=== PATIENT | male | born 1995 | race Caucasian/White ===

== ENCOUNTER → 2016-05-20 | Outpatient (CLI) | payer OTHER ==
--- OUTSIDE RECORDS SUMMARY | 2016-05-17 16:37 | XMS REPORT | Continuity of Care Document ---
Author Author Interface Organization Interface Address Unknown Phone Unavailable Problems Problem Status Onset Date Classification Date Reported Comments Source Other and unspecified nonspecific immunological findings Active Problem 04/04/2014 [facility] Low back pain (disorder) Active Problem 04/04/2014 [facility] Diabetes mellitus type 1 (disorder) Active 05/16/2009 Problem 04/04/2014 [facility] Medications Medication Details Route Status Patient Instructions Ordering Provider Order Date Source influenza virus vaccine, inactivated 04/22/11 11:00: 00 [facility], [facility], Routine, 0.5 mL, IM, Injection, UnscheduledRefrigerate. For IM administration only. Influenza Virus Vaccine, inactivated. Patient Charge. Manufacturer MED ID: [id number] Inactive [facility] Ketostix Test Strips 50 ct Bottle 1 stick, Urine, per protocol, Used to test urine ketones when blood glucose is greater than 250, # 1 box, Refill(s) 1, Pharmacy: [facility] # [id number] </br>Used to test urine ketones when blood glucose is greater than 250 Active [facility] One Touch Ultra Test [id number] ct Box See Instructions , 1 strip Finger Tip Other-see comments 90 day(s), # 300 EA, Refill(s) 5, Pharmacy: [id number] </br>1 strip Finger Tip Other-see comments 90 day(s) Active [facility] Pump Supplies =1 device, Other-(see comments), Other- see comments, Diabetic Supplies, Infusion sets, pump resevoir syringes/ cartridges and related diabetes supplies. Change infusion set and resevoir every 2 days as directed, Refill(s) 3, called to pharmacy (Rx) </br>Diabetic Supplies, Infusion sets, pump resevoir syringes/cartridges and related diabetes supplies. Change infusion set and resevoir every 2 days as directed Active [facility] Contour Next Test Strips 50 ct Box 1 strip, Finger Tip , Other-see comments, 6 times a day, # 4 box, Refill(s) 5, called to pharmacy ( Rx) </br>6 times a day Active [facility] BD Ultrafine Pen [place] 12.7mm needle length 100 ct box 1 syringe, Subcutaneous, Other-see comments, 6 times per day. Use a new needle with each injection., # 2 box, Refill(s) 5, Pharmacy: [facility]acy #[id number] </br>6 times per day. Use a new needle with each injection. Active [facility] Alcohol Swabs 1 EA, Topical, per protocol, 1 box of 300, # 1 box, Refill(s) 5, other reason (Rx) </br>1 box of 300 Active [facility] Fluzone 04/24/12 9:23:00 [employer], [facility], Routine , 0.5 mL, IM, Injection, 1 time only, Stop date 04/24/12 9:23:00 CSTRefrigerate. For IM administration only. Influenza Virus Vaccine, inactivated. Patient Charge. Manufacturer MED ID: [id number] Inactive [facility] Influenza Virus (Fluarix Quadrivalent) Inactivated 10:09:00 CDT, [facility], Routine, 0.5 mL, IM, Injection, 1 time only , Stop date 02/15/13 10:09:00 CDT Inactive [facility] Apidra 100 units/mL subcutaneous solution use up to 90 units daily, Subcutaneous, qDay, # 3 vial, Refill(s) 5, Pharmacy: [id number] Active [facility] Glucagon Emergency Kit 1 kit, IM, 1 time only, Dispense=1 kit, Use for severe low blood glucose </br>Use for severe low blood glucose Active [facility] Blood Sugar Meter 1 device, Other-(see comments), Other-see comments, # 1 EA, Refill(s) 0, other reason (Rx) Active [facility] Allergies, Adverse Reactions, Alerts Substance Category Reaction Severity Reaction type Status Date Reported Comments Source Immunizations Immunization Date Given Site Status Last Updated Comments Source hepatitis B vaccine (Hep B) 1995 completed [facility] hepatitis B vaccine (Hep B) 1995 completed [facility] dipht/tetanus/pertuss(a) (DTap) 1995 completed [facility] haemophilus flu b (Hib) 1995 completed [facility] inactivated poliovirus (IPV) 1995 [facility] dipht/tetanus/pertuss(a) (DTap) 1995 [facility] inactivated poliovirus (IPV) 1995 completed [facility] haemophilus flu b (Hib) 1995 completed [facility] dipht/tetanus/pertuss(a) (DTap) 01/04/1996 [facility] hepatitis B vaccine (Hep B) 01/04/1996 completed [facility] inactivated poliovirus (IPV) 01/04/1996 [facility] haemophilus flu b (Hib) 01/04/1996 [facility] Measles, Mumps, Rubella, Varicella(MMRV) 06/13/1996 completed [facility] dipht/tetanus/pertuss(a) (DTap) 11/12/1996 completed [facility] haemophilus flu b (Hib) 11/12/1996 completed [facility] dipht/tetanus/pertuss(a) (DTap) 08/29/2000 [facility] measles/mumps/rubella virus (MMR) 08/29/2000 completed [facility] inactivated poliovirus (IPV) 08/29/2000 [facility] influenza virus, inactivated (TIV) 03/01/2005 [facility] hepatitis A pediatric (Hep A, Peds) 07/19/2007 [facility] hepatitis A pediatric (Hep A, Peds) 07/16/2009 [facility] Flu vaccine reported-w/o vaccine record 02/28/2010 [facility] influenza virus, inactivated (TIV) 04/22/2011 completed [facility] influenza virus, inactivated (TIV) 04/24/2012 [facility] Influenza Virus, Inactivated 02/15/2013 [facility] Results Order Name Results Value Reference Range Date Interpretation Comments Source Hgb A1c POC Hemoglobin A1c (POC) 7.9 % 4.0 - 6.0 2013 [facility] Hgb A1c POC Hemoglobin A1c (POC) 7.5 % 4.0 - 6.0 2013 [facility] Vital Signs Vital Sign Value Date Comments Source Systolic Blood Pressure Cuff Monitored 126 mm[Hg] 08/09/2013 [facility] Diastolic Blood Pressure Cuff Monitored 65 mm[Hg] 08/09/2013 [facility] Mean Arterial Pressure 86 mm[Hg] 08/09/2013 [facility] Heart Rate 62 bpm 08/09/2013 [facility] Heart Rate 67 bpm 05/21/2013 [facility] Diastolic Blood Pressure Cuff Monitored 52 mm[Hg] 05/21/2013 [facility] Systolic Blood Pressure Cuff Monitored 128 mm[Hg] 05/21/2013 [facility] Heart Rate 67 bpm 05/21/2013 [facility] Systolic Blood Pressure Cuff Monitored 128 mm[Hg] 05/21/2013 [facility] Mean Arterial Pressure 77 mm[Hg] 05/21/2013 [facility] Diastolic Blood Pressure Cuff Monitored 52 mm[Hg] 05/21/2013 [facility] Diastolic Blood Pressure Cuff Monitored 45 mm[Hg] 05/21/2013 [facility] Mean Arterial Pressure 68 mm[Hg] 05/21/2013 [facility] Systolic Blood Pressure Cuff Monitored 114 mm[Hg] 05/21/2013 [facility] Heart Rate 74 bpm 05/21/2013 [facility] Diastolic Blood Pressure 72 mm[Hg] 12/05/2013 [facility] Systolic Blood Pressure 118 mm[Hg] 12/05/2013 [facility] Heart Rate 55 bpm 12/05/2013 [facility] Diastolic Blood Pressure Cuff Monitored 58 mm[Hg] 12/05/2013 [facility] Systolic Blood Pressure Cuff Monitored 140 mm[Hg] 12/05/2013 [facility] Diastolic Blood Pressure Cuff Monitored 58 mm[Hg] 12/05/2013 [facility] Systolic Blood Pressure Cuff Monitored 140 mm[Hg] 12/05/2013 [facility] Heart Rate 55 bpm 12/05/2013 [facility] Mean Arterial Pressure 91 mm[Hg] 12/05/2013 [facility] Temperature Celsius 36.5 Silvia 04/24/2013 [facility] Temperature Route Oral </br>(04/24/2013 08:57:00) <sup> </sup> 04/24/2013 [facility] Diastolic Blood Pressure Cuff Monitored 62 mm[Hg] 04/24/2013 [facility] Systolic Blood Pressure Cuff Monitored 132 mm[Hg] 04/24/2013 [facility] Heart Rate 61 bpm 04/24/2013 [facility] Total Pain Calculation 4 [facility] Heart Rate 66 bpm 02/15/2013 [facility] Diastolic Blood Pressure Cuff Monitored 65 mm[Hg] 02/15/2013 [facility] Systolic Blood Pressure Cuff Monitored 120 mm[Hg] 02/15/2013 [facility] Heart Rate 66 bpm 02/15/2013 [facility] Mean Arterial Pressure 85 mm[Hg] 02/15/2013 [facility] Diastolic Blood Pressure Cuff Monitored 65 mm[Hg] 02/15/2013 [facility] Systolic Blood Pressure Cuff Monitored 120 mm[Hg] 02/15/2013 [facility] Encounters Location Location Details Encounter Type Encounter Number Reason For Visit Attending Provider ADM Date DC Date Status Source [facility] CLI [id number] F/U Diabetic Gerald Espino 08/09/2013 08/09/2013 Active [facility] [id number] DM f/u Ciera Serrano 12/05/201309/2013 Active [facility] CLI [id number] DM1 Darnell Blair 05/21/2013 05/21/2013 Active [facility] CLI [id number] Type 1 DM Mili Iniguez 02/15/20132012 [facility] CLI [id number] +VAN; joint pain Dipti Farrar 04/24/2013 04/24/2013 [facility] Procedures Procedure Code Date Perfomer Comments Source
== END ==
LOC: LAB 05-17 16:30
PROVIDERS: ATTEND Internal Medicine Endocrinology, Diabetes & Metabolism
DX: E10.9 Type 1 diabetes mellitus without complications (principal)
CPT/HCPCS: 36415; 83036

== ENCOUNTER 2017-02-27 10:36 | Emergency (ER) | payer OTHER ==
[~2017-02-27] VITALS: Ht 185.4 cm; Wt 90.7 kg
[2017-02-27] MEDS ORDERED: INSULIN PUMP (10:57)
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
[2017-02-27] MEDS ORDERED: TETANUS,DIPTH,PERTUSS P/F (BOOSTRIX) 0.5 ML VIAL IM STA (11:36)
[2017-02-27] MEDS ORDERED: ACETAMINOPHEN 500 MG TAB (TYLENOL) PO STA (11:36)
--- NOTE | 2017-02-27 12:48 | Diagnostic Imaging Report ---
INDICATION: Injury, chest and right rib pain 4 views of the chest and right ribs were obtained. The heart size and vascularity are normal. The lungs are clear. There is no effusion or pneumothorax. No rib fracture or other acute bony abnormality is seen. IMPRESSION: Normal chest and right ribs. Dictated by: Dictated on workstation # [id number]
--- NOTE | 2017-02-27 12:48 | Diagnostic Imaging Report ---
INDICATION: Fall. Right-sided pelvic pain Single view of the pelvis shows no fracture, dislocation or other acute abnormality. IMPRESSION: No acute abnormality is seen. Dictated by: Dictated on workstation # [id number]
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
[2017-02-27] MEDS ORDERED: NAPR500T PO (13:15)
[2017-02-27] MEDS ORDERED: ORPH100T PO (13:15)
[2017-02-27 13:19] VITALS: BP 137/83
== END 2017-02-27 13:19 | disposition home or self-care (01) ==
LOC: EDUNIT# 10:36 → ER 10:37
DX: S00.03XA Contusion of scalp, initial encounter (principal); S00.83XA Contusion of other part of head, initial encounter; S20.311A Abrasion of right front wall of thorax, initial encounter; S40.211A Abrasion of right shoulder, initial encounter; E11.9 Type 2 diabetes mellitus without complications; Z23 Encounter for immunization; Z90.89 Acquired absence of other organs; Z79.4 Long term (current) use of insulin; Y04.8XXA Assault by other bodily force, initial encounter
CPT/HCPCS: 70450; 70486; 71101; 72125; 72170; 82962; 90715; 99284

== ENCOUNTER 2018-03-07 14:06 | Emergency (ER) | payer BC ==
[~2018-03-07] VITALS: Ht 185.4 cm; Wt 90.7 kg
[~2018-03-07 14:06] MED LIST: INSULIN PUMP; NAPR-1071 PO; ORPH100T PO
[2018-03-07 14:20] VITALS: BP_SYST 110; BP_SYST 121; BP_SYST 138; BP_DIAS 52; BP_DIAS 59; BP_DIAS 64
--- NOTE | 2018-03-07 14:27 | ED Abdominal Pain ---
General Stated Complaint: HERNIA Source of Information: Patient Exam Limitations: No Limitations History of Present Illness Date Seen by Provider: Mar 07, 2018 Time Seen by Provider: 14:17 Initial Comments Patient presents to ER by private conveyance with chief complaint of about half hour prior to arrival he was doing some squats and as he was standing up lifting about 315 pounds he started having some severe pain in his midepigastric region. He says he had a flash of warmth and got very lightheaded like he was in a pass out. He did not pass out nor did he fall. He says he's had these episodes in the past but this time with the pain is afraid he may have caused a hernia to open up. In a bowel movement this morning. He is not taking anything for the pain. He has not had any surgeries on his abdomen. He does have a history of diabetes for which she has an insulin pump and takes citalopram 10 mg daily for anxiety. Allergies and Home Medications Allergies Coded Allergies: No Known Drug Allergies (Unverified , 02/27/17) Home Medications Naproxen 500 Mg Tablet, 500 MG PO BID PRN for PAIN-MODERATE Prescribed by: ROSE MONTAÑO on 02/27/17 1315 Orphenadrine Citrate 100 Mg Tablet.er, 100 MG PO BID PRN for SPASMS Prescribed by: ROSE MONTAÑO on 02/27/17 1315 Patient Home Medication List Home Medication List Reviewed: Yes Review of Systems Review of Systems Constitutional: No chills, No diaphoresis EENTM: No Blurred Vision, No Double Vision Respiratory: Denies Cough, Denies Shortness of Air Cardiovascular: Denies Chest Pain; Lightheadedness, Syncope Gastrointestinal: Denies Constipated, Denies Diarrhea (near), Denies Nausea Genitourinary: Denies Burning, Denies Discharge, Denies Drainage Musculoskeletal: No back pain, No joint pain Skin: No pruritus, No rash Past Xzcgqfh-Ygmmqj-Erbhip Hx Patient Social History 2nd Hand Smoke Exposure: No Recent Hopitalizations: No Immunizations Up To Date Tetanus Booster (TDap): Unknown Seasonal Allergies Seasonal Allergies: No Past Medical History Surgeries: Yes Adenoidectomy, Orthopedic, Tonsillectomy Respiratory: No Cardiac: No Neurological: No Genitourinary: No Gastrointestinal: No Musculoskeletal: No Endocrine: Yes Diabetes, Insulin dep HEENT: No Cancer: No Psychosocial: No Integumentary: No Family Medical History No Pertinent Family Hx Physical Exam Vital Signs Capillary Refill : Height/Weight/BMI Height: 6'1.00" Weight: 200lbs. oz. [id number]; BMI Method:Stated General Appearance: WD/WN, no apparent distress HEENT: PERRL/EOMI, TMs normal, pharynx normal Respiratory: chest non-tender, lungs clear, normal breath sounds, no respiratory distress, no accessory muscle use Cardiovascular: normal peripheral pulses, regular rate, rhythm Gastrointestinal: normal bowel sounds, non tender, soft, no organomegaly, other (no palpable hernia in the central line. There is an umbilical hernia with easily reduced contents.) Extremities: normal inspection, normal capillary refill Neurologic/Psychiatric: alert, oriented x 3 Skin: normal color, warm/dry Progress/Results/Core Measures Results/Orders My Orders Orders - KELSIE LEWIS Orthostatic Vital Signs (Adult (03/07/18 14:20) Progress Progress Note : Time: 14:29 Progress Note Orthostatic vital signs go from 138 lying to 110 systolic standing up heart rate from 64-71. This is probably indicative of being hypovolemic which would be consistent with history of vigorous weightlifting regimen. He can tolerate by mouth fluids were given and go ahead and encourage him to drink right now. This would explain his near syncope events as being vasovagal near-syncope. As far as the pain is feeling in his abdomen it does appear to be limited to his abdominal wall so we plan to trial some NSAIDs. He can follow up with [facility] or we can give him referral to a general surgeon for further examination and management outpatient. Departure Impression Primary Impression: Umbilical hernia Qualified Codes: K42.9 - Umbilical hernia without obstruction or gangrene Additional Impression: Vasovagal near syncope Disposition: 01 HOME, SELF-CARE Condition: Stable (ERASED) Departure-Patient Inst. Decision time for Depature: 14:39 Referrals: MINERVA SWAIN DO NO,LOCAL PHYSICIAN (PCP) Primary Care Physician QUEENIE ALEX MD Patient Instructions: Abdominal Hernia (DC) Add. Discharge Instructions: Drink more fluids and do your best to keep your blood sugars under control. Follow-up with Dr. Alex for reexamination later in the week. Use Tylenol 1000 mg every 8 hours and/or ibuprofen 800 mg every 8 hours as needed for pain. If you're unable to pass a bowel movement or having persistent severe pain does not improve then you should return to the ER. You may also follow up in the clinic with Dr. Swain, General Surgery and discuss your umbilical hernia. Copy Copies To 1: MINERVA SWAIN TITUS J Mar 07, 2018 14:27
[2018-03-07 14:42] VITALS: BP 121/62
== END 2018-03-07 14:42 | disposition home or self-care (01) ==
LOC: EDUNIT# 14:06 → ER 14:07
DX: K42.9 Umbilical hernia without obstruction or gangrene (principal); R55 Syncope and collapse; E11.9 Type 2 diabetes mellitus without complications; F41.9 Anxiety disorder, unspecified; Z79.4 Long term (current) use of insulin; Z90.89 Acquired absence of other organs
CPT/HCPCS: 99282